=== PATIENT | female | born 1965 | race Caucasian/White ===

== ENCOUNTER 2016-09-04 09:28 | Day surgery (SDC) | payer OTHER ==
--- NOTE | 2016-09-04 08:17 | HP ---
DATE OF SURGERY: 09/04/2016 HISTORY OF PRESENT ILLNESS: The patient is a 50 year-old had history of stage 3B colon cancer in the past. Left colectomy 07/07/2014 with 4 out of 28 nodes positive at that time and followed by Dr. Carson. She had some chemotherapy recently. She had colonoscopy last year did not show any obvious recurrence. Recently she had PET CT scan showed three lesions in the liver, small lung nodules. PET scan showed area of concern descending colon. I recommend colonoscopy, focal uptake in small pulmonary nodules as well as increased uptake in one of the nodules, concern for metastatic disease. PAST MEDICAL HISTORY: Hypertension, diabetes. PAST SURGICAL HISTORY: Partial hysterectomy, benign breast lump removed in the past, partial colectomy with re-anastomosis back in 2014. MEDICATIONS: Metformin, Fenofibrate, lisinopril. ALLERGIES: NKDA. FAMILY HISTORY: Cancer, diabetes, heart disease. SOCIAL HISTORY: No smoking or alcohol abuse. REVIEW OF SYSTEMS: Twelve systems reviewed per admission assessment. Tolerating p.o. okay. No change in bowel movements. No bloody stools. Mild tenderness in right upper quadrant at times but otherwise she had a liver biopsy back in July. No chest pain or palpitations other systems negative or noncontributory as above and per preadmission questionnaire. PHYSICAL EXAMINATION: GENERAL: No acute distress. HEENT: Sclerae nonicteric. NECK: No JVD. CHEST: Equal excursion, nonlabored breathing. CVS: Regular rate and rhythm. ABDOMEN: Soft. No peritoneal signs. EXTREMITIES: No significant edema. NEURO: Alert, moving extremities symmetrically. No gross motor deficits noted. RECTAL: Deferred timed to endoscopy exam. IMPRESSION: History of stage 3B colon cancer status post resection, chemotherapy in the past, also some areas in the liver as well as increased uptake in her descending colon. I feel she would benefit from follow up colonoscopy to evaluate the descending colon area. Risks and benefits explained in detail including but not limited to bleeding or infection, small risk of bowel injury or perforation possibly requiring open procedure, small risk of missed or nondiagnosis or incomplete exam possibly requiring barium enema, other studies or procedures, general risk of anesthesia or sedation, risk of bowel prep, postoperative risk of nausea, vomiting or cramping but not limited to. She understands and agrees to the planned procedure and will proceed with outpatient follow up colonoscopy.
[~2016-09-04 09:28] MED LIST: DIPRIVAN 200 MG/20 ML IV ONE; Ketamine HCl 50 MG/ML IV ONE; Lactated Ringers 1,000 ML IV ONE
[2016-09-04] MEDS ORDERED: Lactated Ringers 1,000 ML IV ONE (10:05)
[2016-09-04] MEDS ORDERED: Lactated Ringers 1,000 ML IV SCH (10:30)
[2016-09-04] MEDS ORDERED: Sodium Chloride 0.9% 10 ML FLUSH Syringe PICC PRN (12:51)
[2016-09-04 13:51] VITALS: O2SAT 98
[2016-09-04 13:59] VITALS: BP 133/75; PULSE 79
--- NOTE | 2016-09-06 08:07 | OP ---
SURGERY DATE/TIME: 09/04/2016 1135 PREOPERATIVE DIAGNOSIS: History of stage III colon cancer with recent abnormal PET scan in need of follow up colonoscopy. POSTOPERATIVE DIAGNOSES: 1) Somewhat poor prep limiting exam. 2) Diverticulosis. 3) Small internal and external hemorrhoids. 4) Small raised lesion versus inflammatory versus other etiology versus early polyps or other etiology descending colon. 5) Patent anastomosis with no evidence of recurrence at the anastomotic site. PROCEDURES: 1) Colonoscopy to terminal ileum. 2) Retrograde ileoscopy. 3) Hot biopsy small raised lesion versus early polyp or inflammatory reason versus other nodule descending colon x2. 4) Random cold biopsies of the proximal colon side of the anastomotic site. 5) Random cold biopsy of the colon distal to the anastomotic site in the rectal area and inflammation in rectal area. SURGEON: Dr. Benjie Driver. ANESTHESIA: MAC. ESTIMATED BLOOD LOSS: Minimal. INDICATIONS: As noted above. Risks and benefits explained in detail but not limited to. She had an abnormal PET scan, question of some increased uptake in the descending colon. I felt she would benefit from follow up colonoscopy given her prior colon cancer. Consent had been obtained. DESCRIPTION OF PROCEDURE AND FINDINGS: The patient is taken to the endoscopy room. MAC anesthesia introduced. After official time out and no disagreement with planned procedure, digital rectal exam did not reveal any rectal masses. Video colonoscope inserted and passed up through the patent anastomosis. No other recurrence of anastomosis and was widely patent. The scope slowly and carefully passed up through the descending colon, transverse colon to the cecum and up into the ileum. Retrograde ileoscopy performed. The terminal ileum was grossly unremarkable. On withdrawal of the scope the prep overall was somewhat poor with areas of liquidy semi-solid and some solid stool limiting the exam this was suction irrigated as well as possible. Otherwise on withdrawal of the scope there were no signs of any large polyps, masses or obstructing lesions. In the descending colon there were two small raised lesions whether early polyp versus hyperplastic versus inflammation or other etiology these were biopsied with hot biopsy forceps. Some brief ooze of the biopsy was watched for a few seconds. Good hemostasis then noted. She had some mild diverticulosis. She had some small internal and external hemorrhoids but otherwise the anastomotic site was widely patent with no evidence of any recurrence of the anastomotic site. Given her PET scan random colon biopsies were taken in the descending colon prior to the anastomosis as well as the distal colon and rectum distal to the anastomotic site. Inflammation in the rectum was also biopsied. The scope was withdrawn. The patient tolerated the procedure well. There was no evidence of any large polyps, masses or obstructing lesions. Findings discussed with the family out in the waiting area.
== END 2016-09-04 13:10 | disposition home or self-care (01) ==
LOC: SDC 09:28
PROVIDERS: ATTEND Surgery
PROC: 0DJD8ZZ Inspection of Lower Intestinal Tract, Via Natural or Artificial Opening Endoscopic (ICD-10-PCS; principal; 2016-09-04)
PROC: 0DBM8ZX Excision of Descending Colon, Via Natural or Artificial Opening Endoscopic, Diagnostic (ICD-10-PCS; 2016-09-04)
PROC: 0DBK8ZX Excision of Ascending Colon, Via Natural or Artificial Opening Endoscopic, Diagnostic (ICD-10-PCS; 2016-09-04)
PROC: 0DBH8ZX Excision of Cecum, Via Natural or Artificial Opening Endoscopic, Diagnostic (ICD-10-PCS; 2016-09-04)
PROC: 0DBN8ZX Excision of Sigmoid Colon, Via Natural or Artificial Opening Endoscopic, Diagnostic (ICD-10-PCS; 2016-09-04)
DX: K57.90 Diverticulosis of intestine, part unspecified, without perforation or abscess without bleeding (principal); K64.8 Other hemorrhoids; K64.4 Residual hemorrhoidal skin tags; K63.9 Disease of intestine, unspecified; K62.89 Other specified diseases of anus and rectum; Z90.49 Acquired absence of other specified parts of digestive tract; I10 Essential (primary) hypertension; E11.9 Type 2 diabetes mellitus without complications; Z79.4 Long term (current) use of insulin; Z79.899 Other long term (current) drug therapy
CPT/HCPCS: 00810; 36415; 82962; 88305; J1642; J2704